=== PATIENT | male | born 1930 | race Caucasian/White ===

== ENCOUNTER 2017-07-21 06:04 | Emergency (ER) | payer MEDICARE ==
[2017-07-21 06:46] LABS: BILIRUBIN,URINE NEGATIVE (NEG); CLARITY,URINE CLEAR; COLOR,URINE YELLOW; GLUCOSE,URINE NEGATIVE (NEG); NITRITE,URINE NEGATIVE (NEG); PH,URINE 5.5; PROTEIN,URINE NEGATIVE (NEG-TRACE); UROBILINOGEN,URINE 0.2 mg/dL (0.2 mg/dL)
[2017-07-21] MEDS: LIDOCAINE 2%/EPI 1:100,000 20 ML VIAL. IJ (07:05)
[2017-07-21 07:19] LABS: RBC,URINE 0 /HPF (0-2)
[2017-07-21 07:20] LABS: BACTERIA,URINE 0 /HPF (0-FEW); SQUAMOUS EPITHELIAL CELL,UR FEW /LPF; WBC,URINE RARE /HPF (0-4)
[2017-07-21 07:43] LABS: ADD MAN DIFF? NO
[2017-07-21 07:47] LABS: BASO % 1 % (0-3); EOS # 0.3 x10^3/uL (0.0-0.7); EOS % 3 % (0-3); HEMATOCRIT 37.9 % (39.0-53.0); HEMOGLOBIN 12.1 g/dL (13.0-17.5); LYMPH # 1.3 x10^3/uL (1.0-4.8); LYMPH % 13 % (24-48); MEAN CORPUSCULAR HEMOGLOBIN 29 pg (25-35); MEAN CORPUSCULAR HGB CONC 32 g/dL (31-37); MEAN CORPUSCULAR VOLUME 92 fL (79-100); MONO # 1.1 x10^3/uL (0.0-1.1); MONO % 12 % (0-9); NEUT % 72 % (31-73); PLATELET COUNT 122 x10^3/uL (140-400); RED BLOOD COUNT 4.14 x10^6/uL (4.30-5.70); RED CELL DISTRIBUTION WIDTH 15.6 % (11.5-14.5); WHITE BLOOD COUNT 9.8 x10^3/uL (4.0-11.0)
[2017-07-21 08:02] LABS: ANION GAP 3 (6-14); BLOOD UREA NITROGEN 24 mg/dL (8-26); BUN/CREATININE RATIO 24 (6-20); CALCIUM 8.6 mg/dL (8.5-10.1); CARBON DIOXIDE 33 mmol/L (21-32); CHLORIDE 95 mmol/L (98-107); GFR 70.8; GLUCOSE 89 mg/dL (70-99); POTASSIUM 4.3 mmol/L (3.5-5.1); SODIUM 131 mmol/L (136-145)
[2017-07-21 08:09] LABS: ALBUMIN 3.4 g/dL (3.4-5.0); ALBUMIN/GLOBULIN RATIO 0.9 (1.0-1.7); ALK PHOS 89 U/L (46-116); ALT (SGPT) 27 U/L (16-63); AST (SGOT) 26 U/L (15-37); INR 1.2 (0.8-1.1); MAGNESIUM 2.2 mg/dL (1.8-2.4); PROTHROMBIN TIME PATIENT 14.1 SEC (11.7-14.0); TOTAL PROTEIN 7.2 g/dL (6.4-8.2)
[2017-07-21 08:09] LABS: TROPONINI < 0.017 ng/mL (0.000-0.055)
[2017-07-21 08:13] LABS: NT-PRO BNP 1519 pg/mL (0-449)
== END 2017-07-21 10:00 | disposition home or self-care (01) ==
LOC: ER 06:04
DX: S01.01XA Laceration without foreign body of scalp, initial encounter (principal); S60.012A Contusion of left thumb without damage to nail, initial encounter; S50.01XA Contusion of right elbow, initial encounter; R29.6 Repeated falls; I48.91 Unspecified atrial fibrillation; I50.9 Heart failure, unspecified; J44.9 Chronic obstructive pulmonary disease, unspecified; E11.9 Type 2 diabetes mellitus without complications; H54.8 Legal blindness, as defined in USA; Z90.49 Acquired absence of other specified parts of digestive tract; Z95.1 Presence of aortocoronary bypass graft; W01.0XXA Fall on same level from slipping, tripping and stumbling without subsequent striking against object, initial encounter; Y93.89 Activity, other specified; Y92.89 Other specified places as the place of occurrence of the external cause; Y99.8 Other external cause status
CPT/HCPCS: 12002; 36415; 70450; 71045; 72125; 73080; 73130; 80053; 81001; 83735; 83880; 84484; 85025; 85610; 99285-25; J3490

== ENCOUNTER 2017-07-23 22:18 | Inpatient (IN) | payer MEDICARE ==
[2017-07-23 22:47] LABS: ADD MAN DIFF? NO
[2017-07-23] MEDS: IPRATROPIUM BROMIDE 0.5 MG/2.5 ML NEBU. NEB (22:47)
[2017-07-23] MEDS: ALBUTEROL SULFATE 2.5 MG/3 ML NEBU. CONT NEB (22:47)
[2017-07-23 22:49] LABS: BASO # 0.1 x10^3/uL (0.0-0.2); BASO % 1 % (0-3); EOS # 0.1 x10^3/uL (0.0-0.7); EOS % 2 % (0-3); HEMATOCRIT 34.5 % (39.0-53.0); HEMOGLOBIN 11.2 g/dL (13.0-17.5); LYMPH # 0.7 x10^3/uL (1.0-4.8); LYMPH % 13 % (24-48); MEAN CORPUSCULAR HEMOGLOBIN 29 pg (25-35); MEAN CORPUSCULAR HGB CONC 33 g/dL (31-37); MEAN CORPUSCULAR VOLUME 90 fL (79-100); MONO # 0.9 x10^3/uL (0.0-1.1); MONO % 16 % (0-9); NEUT # 3.8 x10^3uL (1.8-7.7); NEUT % 68 % (31-73); PLATELET COUNT 120 x10^3/uL (140-400); RED BLOOD COUNT 3.82 x10^6/uL (4.30-5.70); RED CELL DISTRIBUTION WIDTH 15.7 % (11.5-14.5); WHITE BLOOD COUNT 5.6 x10^3/uL (4.0-11.0)
[2017-07-23 22:57] LABS: ANION GAP 6 (6-14); BLOOD UREA NITROGEN 26 mg/dL (8-26); BUN/CREATININE RATIO 22 (6-20); CALCIUM 8.1 mg/dL (8.5-10.1); CARBON DIOXIDE 30 mmol/L (21-32); CHLORIDE 97 mmol/L (98-107); CREATININE 1.2 mg/dL (0.7-1.3); GFR 57.4; GLUCOSE 145 mg/dL (70-99); POTASSIUM 4.4 mmol/L (3.5-5.1); SODIUM 133 mmol/L (136-145)
[2017-07-23 23:03] LABS: ALBUMIN/GLOBULIN RATIO 0.7 (1.0-1.7); ALK PHOS 82 U/L (46-116); ALT (SGPT) 36 U/L (16-63); AST (SGOT) 37 U/L (15-37); TOTAL BILIRUBIN 0.4 mg/dL (0.2-1.0); TOTAL PROTEIN 7.4 g/dL (6.4-8.2)
[2017-07-23 23:05] LABS: TROPONINI 0.018 ng/mL (0.000-0.055)
[2017-07-23 23:09] LABS: NT-PRO BNP 1835 pg/mL (0-449)
[2017-07-23] MEDS: FUROSEMIDE 40 MG/4 ML VIAL. IVP ×2 (23:15→23:45)
[2017-07-23 23:20] LABS: INFLUENZA B PATIENT NEGATIVE (NEGATIVE); OBC FLU VALID
[2017-07-23 23:25] LABS: INFLUENZA A PATIENT POSITIVE (NEGATIVE)
[2017-07-24] MEDS ORDERED: ONDANSETRON PF 4 MG/2 ML VIAL. IV (00:15)
[2017-07-24 07:23] LABS: TROPONINI 0.021 ng/mL (0.000-0.055)
[2017-07-24 09:08] LABS: POC GLUCOSE 106 mg/dL (70-99)
[2017-07-24] MEDS: IPRATRPIUM/ALBUTEROL 0.5/2.5MG 3 ML NEBU. NEB ×4 (09:40→19:43)
[2017-07-24] MEDS: FUROSEMIDE 40 MG/4 ML VIAL. IVP ×2 (10:27→13:43)
[2017-07-24] MEDS: OSELTAMIVIR 75 MG CAPSULE PO ×2 (10:28→20:34)
[2017-07-24] MEDS: ASPIRIN ENTERIC COATED 81 MG TABLET.DR. PO (10:28)
[2017-07-24] MEDS: METOPROLOL TART IMMED RELEASE 50 MG TABLET. PO ×2 (10:28→20:34)
[2017-07-24 11:18] LABS: ANION GAP 6 (6-14); BLOOD UREA NITROGEN 22 mg/dL (8-26); CALCIUM 8.5 mg/dL (8.5-10.1); CARBON DIOXIDE 34 mmol/L (21-32); CHLORIDE 93 mmol/L (98-107); CREATININE 1.1 mg/dL (0.7-1.3); GFR 63.5; GLUCOSE 116 mg/dL (70-99); MAGNESIUM 1.8 mg/dL (1.8-2.4); POTASSIUM 4.4 mmol/L (3.5-5.1); SODIUM 133 mmol/L (136-145)
[2017-07-24 12:23] LABS: POC GLUCOSE 176 mg/dL (70-99)
[2017-07-24] MEDS: ACETAMINOPHEN 325 MG TABLET. PO ×2 (12:42→20:35)
[2017-07-24 13:05] LABS: TROPONINI 0.038 ng/mL (0.000-0.055)
[2017-07-24] MEDS ORDERED: DEXTROSE 50% 25 GM / 50ML DISP.SYRIN. IV (15:15)
[2017-07-24] MEDS: FLUTICASONE 50MCG/NASAL SPRAY 16GM BOTTLE. NS (16:00)
[2017-07-24] MEDS: POTASSIUM CHLORIDE 10 MEQ TABLET.ER. PO (16:44)
[2017-07-24] MEDS: SPIRONOLACTONE 25 MG TABLET PO (16:44)
[2017-07-24] MEDS: SERTRALINE 50 MG TABLET. PO (16:44)
[2017-07-24] MEDS: INSULIN ASPART 300 UNITS/3 ML INSULN.PEN SQ (17:00)
[2017-07-24 17:35] LABS: POC GLUCOSE 81 mg/dL (70-99)
[2017-07-24 20:11] LABS: MRSA BY PCR Negative (Negative)
[2017-07-24] MEDS: traZODone 100 MG TABLET. PO (20:33)
[2017-07-24] MEDS: ATORVASTATIN CALCIUM 20 MG TABLET PO (20:34)
[2017-07-24] MEDS: GABAPENTIN 100 MG CAPSULE. PO (20:34)
[2017-07-24] MEDS: DOCUSATE SODIUM 100 MG CAPSULE. PO (20:35)
[2017-07-24] MEDS: DORZOLAMIDE 2% OPHTH SOLUTION 10ML BOTTLE. OU (20:39)
[2017-07-24] MEDS: INSULIN DETEMIR 300 UNITS/3 ML INSULN.PEN. SQ (21:00)
[2017-07-24] MEDS ORDERED: [UNRECOGNIZED DRUG - OTHER] OP (21:00)
[2017-07-24] MEDS ORDERED: HOMATROPINE HBR OP (21:00)
[2017-07-24 21:03] LABS: POC GLUCOSE 97 mg/dL (70-99)
[2017-07-25] MEDS: ACETAMINOPHEN 325 MG TABLET. PO ×2 (04:07→10:50)
[2017-07-25 05:18] LABS: ADD MAN DIFF? NO
[2017-07-25 05:38] LABS: BASO % 1 % (0-3); EOS % 0 % (0-3); HEMATOCRIT 39.1 % (39.0-53.0); HEMOGLOBIN 12.3 g/dL (13.0-17.5); LYMPH # 1.6 x10^3/uL (1.0-4.8); LYMPH % 27 % (24-48); MEAN CORPUSCULAR HEMOGLOBIN 29 pg (25-35); MEAN CORPUSCULAR HGB CONC 31 g/dL (31-37); MEAN CORPUSCULAR VOLUME 91 fL (79-100); MONO # 1.1 x10^3/uL (0.0-1.1); MONO % 17 % (0-9); NEUT # 3.4 x10^3uL (1.8-7.7); NEUT % 55 % (31-73); PLATELET COUNT 130 x10^3/uL (140-400); RED BLOOD COUNT 4.29 x10^6/uL (4.30-5.70); RED CELL DISTRIBUTION WIDTH 16.1 % (11.5-14.5); WHITE BLOOD COUNT 6.1 x10^3/uL (4.0-11.0)
[2017-07-25 06:14] LABS: ALBUMIN 3.3 g/dL (3.4-5.0); ALBUMIN/GLOBULIN RATIO 0.7 (1.0-1.7); ALK PHOS 87 U/L (46-116); ALT (SGPT) 41 U/L (16-63); ANION GAP 5 (6-14); AST (SGOT) 43 U/L (15-37); BLOOD UREA NITROGEN 31 mg/dL (8-26); BUN/CREATININE RATIO 26 (6-20); CALCIUM 8.4 mg/dL (8.5-10.1); CARBON DIOXIDE 35 mmol/L (21-32); CHLORIDE 95 mmol/L (98-107); CREATININE 1.2 mg/dL (0.7-1.3); GFR 57.4; GLUCOSE 91 mg/dL (70-99); POTASSIUM 4.4 mmol/L (3.5-5.1); SODIUM 135 mmol/L (136-145); TOTAL BILIRUBIN 0.6 mg/dL (0.2-1.0); TOTAL PROTEIN 8.2 g/dL (6.4-8.2)
[2017-07-25 07:42] LABS: POC GLUCOSE 83 mg/dL (70-99)
[2017-07-25] MEDS: IPRATRPIUM/ALBUTEROL 0.5/2.5MG 3 ML NEBU. NEB ×4 (07:57→20:17)
[2017-07-25] MEDS: INSULIN ASPART 300 UNITS/3 ML INSULN.PEN SQ ×3 (08:00→17:00)
[2017-07-25] MEDS: GABAPENTIN 100 MG CAPSULE. PO ×2 (09:00→20:34)
[2017-07-25] MEDS: FLUTICASONE 50MCG/NASAL SPRAY 16GM BOTTLE. NS (09:00)
[2017-07-25] MEDS: DORZOLAMIDE 2% OPHTH SOLUTION 10ML BOTTLE. OU ×2 (09:00→20:35)
[2017-07-25] MEDS: SPIRONOLACTONE 25 MG TABLET PO (09:43)
[2017-07-25] MEDS: OMEGA-3 FATTY ACIDS/FISH OIL 1,000 MG CAPSULE. PO (09:43)
[2017-07-25] MEDS: CHOLECALCIFEROL (VITAMIN D3) 1,000 UNIT TABLET PO (09:43)
[2017-07-25] MEDS: ASCORBIC ACID 500 MG TABLET PO (09:43)
[2017-07-25] MEDS: DOCUSATE SODIUM 100 MG CAPSULE. PO ×2 (09:43→20:33)
[2017-07-25] MEDS: SERTRALINE 50 MG TABLET. PO (09:44)
[2017-07-25] MEDS: POTASSIUM CHLORIDE 10 MEQ TABLET.ER. PO (09:44)
[2017-07-25] MEDS: OSELTAMIVIR 75 MG CAPSULE PO ×2 (09:44→20:35)
[2017-07-25] MEDS: ASPIRIN ENTERIC COATED 81 MG TABLET.DR. PO (09:44)
[2017-07-25] MEDS: DIGOXIN 125 MCG TABLET. PO (09:45)
[2017-07-25] MEDS: FUROSEMIDE 20 MG TABLET PO (09:45)
[2017-07-25] MEDS: METOPROLOL TART IMMED RELEASE 50 MG TABLET. PO ×2 (09:46→20:33)
[2017-07-25] MEDS ORDERED: FUROSEMIDE 20 MG/2 ML VIAL. IVP (10:15)
[2017-07-25] MEDS: FUROSEMIDE 40 MG/4 ML VIAL. IVP (10:51)
[2017-07-25 12:05] LABS: POC GLUCOSE 129 mg/dL (70-99)
[2017-07-25 12:16] LABS: BASE EXCESS ABG 3 mmol/L (-3-3); HCO3 ABG 33 mmol/L (21-28); PH ABG 7.22 (7.35-7.45); PO2 ABG 63 mmHg (65-108); SAT O2 ABG 90 % (92-99)
[2017-07-25 12:31] LABS: PCO2 ABG 83 mmHg (35-46)
[2017-07-25] MEDS: HALOPERIDOL LACTATE 5 MG/ML VIAL. IVP ×5 (12:44→22:45)
[2017-07-25] MEDS: HEPARIN PF for SUB-Q USE 5,000 UNIT/0.5 ML VIAL. SQ ×2 (15:08→20:32)
[2017-07-25 18:10] LABS: BASE EXCESS ABG 6 mmol/L (-3-3); HCO3 ABG 35 mmol/L (21-28); PH ABG 7.28 (7.35-7.45); PO2 ABG 65 mmHg (65-108); SAT O2 ABG 92 % (92-99)
[2017-07-25 18:17] LABS: FIO2 ABG 30; PCO2 ABG 78 mmHg (35-46)
[2017-07-25] MEDS: ATORVASTATIN CALCIUM 20 MG TABLET PO (20:33)
[2017-07-25] MEDS: traZODone 100 MG TABLET. PO (20:33)
[2017-07-25] MEDS: FAMOTIDINE 20 MG/2 ML VIAL IVP (20:33)
[2017-07-25] MEDS: fentaNYL PF VIAL 100 MCG/2 ML VIAL IV ×2 (20:40→23:38)
[2017-07-25] MEDS: INSULIN DETEMIR 300 UNITS/3 ML INSULN.PEN. SQ (21:00)
[2017-07-25 21:06] LABS: POC GLUCOSE 111 mg/dL (70-99)
[2017-07-26] MEDS: fentaNYL PF VIAL 100 MCG/2 ML VIAL IV (03:21)
[2017-07-26] MEDS: IPRATRPIUM/ALBUTEROL 0.5/2.5MG 3 ML NEBU. NEB ×5 (03:29→20:15)
[2017-07-26] MEDS: HEPARIN PF for SUB-Q USE 5,000 UNIT/0.5 ML VIAL. SQ ×3 (06:11→21:23)
[2017-07-26 07:55] LABS: POC GLUCOSE 97 mg/dL (70-99)
[2017-07-26] MEDS: OSELTAMIVIR 75 MG CAPSULE PO ×2 (07:59→21:26)
[2017-07-26] MEDS: CHOLECALCIFEROL (VITAMIN D3) 1,000 UNIT TABLET PO (07:59)
[2017-07-26] MEDS: FUROSEMIDE 20 MG TABLET PO (07:59)
[2017-07-26] MEDS: OMEGA-3 FATTY ACIDS/FISH OIL 1,000 MG CAPSULE. PO (08:00)
[2017-07-26] MEDS: METOPROLOL TART IMMED RELEASE 50 MG TABLET. PO ×2 (08:00→21:16)
[2017-07-26] MEDS: INSULIN ASPART 300 UNITS/3 ML INSULN.PEN SQ ×3 (08:00→17:00)
[2017-07-26] MEDS: POTASSIUM CHLORIDE 10 MEQ TABLET.ER. PO (08:01)
[2017-07-26] MEDS: SPIRONOLACTONE 25 MG TABLET PO (08:01)
[2017-07-26] MEDS: DOCUSATE SODIUM 100 MG CAPSULE. PO ×2 (08:01→21:16)
[2017-07-26] MEDS: DIGOXIN 125 MCG TABLET. PO (08:01)
[2017-07-26] MEDS: ASPIRIN ENTERIC COATED 81 MG TABLET.DR. PO (08:01)
[2017-07-26] MEDS: HALOPERIDOL LACTATE 5 MG/ML VIAL. IVP ×4 (08:02→21:17)
[2017-07-26] MEDS: ASCORBIC ACID 500 MG TABLET PO (08:02)
[2017-07-26] MEDS: SERTRALINE 50 MG TABLET. PO (08:02)
[2017-07-26] MEDS: FLUTICASONE 50MCG/NASAL SPRAY 16GM BOTTLE. NS (08:03)
[2017-07-26 09:00] LABS: BASE EXCESS ABG 5 mmol/L (-3-3); HCO3 ABG 34 mmol/L (21-28); PH ABG 7.31 (7.35-7.45); PO2 ABG 60 mmHg (65-108); SAT O2 ABG 90 % (92-99)
[2017-07-26] MEDS: DORZOLAMIDE 2% OPHTH SOLUTION 10ML BOTTLE. OU ×2 (09:00→22:38)
[2017-07-26] MEDS: GABAPENTIN 100 MG CAPSULE. PO ×2 (09:00→21:15)
[2017-07-26 09:02] LABS: PCO2 ABG 69 mmHg (35-46)
[2017-07-26 11:56] LABS: POC GLUCOSE 117 mg/dL (70-99)
[2017-07-26] MEDS: FUROSEMIDE 20 MG/2 ML VIAL. IVP (12:01)
[2017-07-26] MEDS: methylPREDNISolone SOD SUCC PF 40 MG/ML VIAL. IV ×2 (15:20→21:17)
[2017-07-26 17:37] LABS: POC GLUCOSE 130 mg/dL (70-99)
[2017-07-26] MEDS: traZODone 100 MG TABLET. PO (21:15)
[2017-07-26] MEDS: ATORVASTATIN CALCIUM 20 MG TABLET PO (21:15)
[2017-07-26] MEDS: FAMOTIDINE 20 MG/2 ML VIAL IVP (21:16)
[2017-07-26] MEDS: INSULIN DETEMIR 300 UNITS/3 ML INSULN.PEN. SQ (21:24)
[2017-07-26 21:31] LABS: POC GLUCOSE 178 mg/dL (70-99)
[2017-07-27] MEDS: HALOPERIDOL LACTATE 5 MG/ML VIAL. IVP ×2 (02:34→21:35)
[2017-07-27] MEDS: fentaNYL PF VIAL 100 MCG/2 ML VIAL IV ×2 (02:34→21:35)
[2017-07-27 05:20] LABS: ADD MAN DIFF? NO
[2017-07-27 05:32] LABS: BASO % 0 % (0-3); EOS % 0 % (0-3); HEMATOCRIT 36.4 % (39.0-53.0); HEMOGLOBIN 11.5 g/dL (13.0-17.5); LYMPH # 0.8 x10^3/uL (1.0-4.8); LYMPH % 13 % (24-48); MEAN CORPUSCULAR HEMOGLOBIN 29 pg (25-35); MEAN CORPUSCULAR HGB CONC 32 g/dL (31-37); MEAN CORPUSCULAR VOLUME 91 fL (79-100); MONO # 0.3 x10^3/uL (0.0-1.1); MONO % 6 % (0-9); NEUT % 82 % (31-73); PLATELET COUNT 111 x10^3/uL (140-400); RED BLOOD COUNT 4.02 x10^6/uL (4.30-5.70); RED CELL DISTRIBUTION WIDTH 15.5 % (11.5-14.5); WHITE BLOOD COUNT 6.1 x10^3/uL (4.0-11.0)
[2017-07-27 05:52] LABS: ALBUMIN 2.7 g/dL (3.4-5.0); ALBUMIN/GLOBULIN RATIO 0.6 (1.0-1.7); ALK PHOS 72 U/L (46-116); ALT (SGPT) 40 U/L (16-63); ANION GAP 3 (6-14); AST (SGOT) 47 U/L (15-37); BLOOD UREA NITROGEN 47 mg/dL (8-26); BUN/CREATININE RATIO 43 (6-20); CALCIUM 8.8 mg/dL (8.5-10.1); CARBON DIOXIDE 36 mmol/L (21-32); CHLORIDE 100 mmol/L (98-107); CREATININE 1.1 mg/dL (0.7-1.3); GFR 63.5; GLUCOSE 181 mg/dL (70-99); MAGNESIUM 2.3 mg/dL (1.8-2.4); POTASSIUM 4.2 mmol/L (3.5-5.1); SODIUM 139 mmol/L (136-145); TOTAL BILIRUBIN 0.6 mg/dL (0.2-1.0); TOTAL PROTEIN 7.2 g/dL (6.4-8.2)
[2017-07-27] MEDS: methylPREDNISolone SOD SUCC PF 40 MG/ML VIAL. IV ×3 (06:19→21:36)
[2017-07-27] MEDS: HEPARIN PF for SUB-Q USE 5,000 UNIT/0.5 ML VIAL. SQ ×3 (06:20→21:38)
[2017-07-27] MEDS: IPRATRPIUM/ALBUTEROL 0.5/2.5MG 3 ML NEBU. NEB ×4 (07:35→19:49)
[2017-07-27 08:02] LABS: POC GLUCOSE 170 mg/dL (70-99)
[2017-07-27] MEDS: INSULIN ASPART 300 UNITS/3 ML INSULN.PEN SQ ×3 (09:03→18:26)
[2017-07-27] MEDS: DORZOLAMIDE 2% OPHTH SOLUTION 10ML BOTTLE. OU ×2 (09:08→21:37)
[2017-07-27] MEDS: FLUTICASONE 50MCG/NASAL SPRAY 16GM BOTTLE. NS (09:09)
[2017-07-27] MEDS: FUROSEMIDE 20 MG TABLET PO (09:13)
[2017-07-27] MEDS: ASPIRIN ENTERIC COATED 81 MG TABLET.DR. PO (09:13)
[2017-07-27] MEDS: METOPROLOL TART IMMED RELEASE 50 MG TABLET. PO ×2 (09:13→21:37)
[2017-07-27] MEDS: OSELTAMIVIR 75 MG CAPSULE PO ×2 (09:13→21:36)
[2017-07-27] MEDS: SPIRONOLACTONE 25 MG TABLET PO (09:13)
[2017-07-27 11:01] LABS: DIG 0.8 ng/mL (0.9-2.0)
[2017-07-27 12:00] LABS: POC GLUCOSE 231 mg/dL (70-99)
[2017-07-27] MEDS: SERTRALINE 50 MG TABLET. PO (12:03)
[2017-07-27] MEDS: CHOLECALCIFEROL (VITAMIN D3) 1,000 UNIT TABLET PO (12:03)
[2017-07-27] MEDS: GABAPENTIN 100 MG CAPSULE. PO ×2 (12:03→21:36)
[2017-07-27] MEDS: ACETAMINOPHEN 325 MG TABLET. PO (12:03)
[2017-07-27] MEDS: ASCORBIC ACID 500 MG TABLET PO (12:03)
[2017-07-27] MEDS: OMEGA-3 FATTY ACIDS/FISH OIL 1,000 MG CAPSULE. PO (12:03)
[2017-07-27] MEDS: DOCUSATE SODIUM 100 MG CAPSULE. PO ×2 (12:03→21:36)
[2017-07-27] MEDS: DIGOXIN 125 MCG TABLET. PO (12:04)
[2017-07-27] MEDS: POTASSIUM CHLORIDE 10 MEQ TABLET.ER. PO (12:08)
[2017-07-27] MEDS: FUROSEMIDE 20 MG/2 ML VIAL. IVP (16:23)
[2017-07-27 18:24] LABS: POC GLUCOSE 318 mg/dL (70-99)
[2017-07-27] MEDS: FAMOTIDINE 20 MG/2 ML VIAL IVP (21:36)
[2017-07-27] MEDS: ATORVASTATIN CALCIUM 20 MG TABLET PO (21:36)
[2017-07-27] MEDS: traZODone 100 MG TABLET. PO (21:36)
[2017-07-27] MEDS: INSULIN DETEMIR 300 UNITS/3 ML INSULN.PEN. SQ (21:38)
[2017-07-28 04:13] LABS: BASO % 0 % (0-3); EOS % 0 % (0-3); HEMATOCRIT 36.6 % (39.0-53.0); HEMOGLOBIN 12.1 g/dL (13.0-17.5); LYMPH # 0.6 x10^3/uL (1.0-4.8); LYMPH % 7 % (24-48); MEAN CORPUSCULAR HEMOGLOBIN 30 pg (25-35); MEAN CORPUSCULAR HGB CONC 33 g/dL (31-37); MEAN CORPUSCULAR VOLUME 90 fL (79-100); MONO # 0.6 x10^3/uL (0.0-1.1); MONO % 7 % (0-9); NEUT # 7.5 x10^3uL (1.8-7.7); NEUT % 86 % (31-73); PLATELET COUNT 138 x10^3/uL (140-400); RED BLOOD COUNT 4.08 x10^6/uL (4.30-5.70); RED CELL DISTRIBUTION WIDTH 15.5 % (11.5-14.5); WHITE BLOOD COUNT 8.7 x10^3/uL (4.0-11.0)
[2017-07-28 04:16] LABS: ADD MAN DIFF? YES
[2017-07-28 05:08] LABS: ALBUMIN 2.8 g/dL (3.4-5.0); ALBUMIN/GLOBULIN RATIO 0.6 (1.0-1.7); ALK PHOS 76 U/L (46-116); ALT (SGPT) 53 U/L (16-63); ANION GAP 0 (6-14); AST (SGOT) 43 U/L (15-37); BLOOD UREA NITROGEN 49 mg/dL (8-26); BUN/CREATININE RATIO 45 (6-20); CARBON DIOXIDE 39 mmol/L (21-32); CHLORIDE 100 mmol/L (98-107); CREATININE 1.1 mg/dL (0.7-1.3); GFR 63.5; GLUCOSE 300 mg/dL (70-99); MAGNESIUM 2.4 mg/dL (1.8-2.4); POTASSIUM 4.3 mmol/L (3.5-5.1); SODIUM 139 mmol/L (136-145); TOTAL BILIRUBIN 0.5 mg/dL (0.2-1.0); TOTAL PROTEIN 7.3 g/dL (6.4-8.2)
[2017-07-28 05:22] LABS: % LYMPHS 9 % (24-48); % MONOS 5 % (0-10); % SEGS 86 % (35-66)
[2017-07-28 05:24] LABS: ANISOCYTOSIS SLIGHT; PLT ESTIMATE ADEQUATE (ADEQUATE); POIKILOCYTOSIS SLIGHT
[2017-07-28] MEDS: methylPREDNISolone SOD SUCC PF 40 MG/ML VIAL. IV ×2 (06:10→13:17)
[2017-07-28] MEDS: HEPARIN PF for SUB-Q USE 5,000 UNIT/0.5 ML VIAL. SQ ×3 (06:18→21:57)
[2017-07-28] MEDS: IPRATRPIUM/ALBUTEROL 0.5/2.5MG 3 ML NEBU. NEB ×4 (08:25→20:00)
[2017-07-28 08:37] LABS: POC GLUCOSE 245 mg/dL (70-99)
[2017-07-28] MEDS: FUROSEMIDE 20 MG TABLET PO (08:50)
[2017-07-28] MEDS: OMEGA-3 FATTY ACIDS/FISH OIL 1,000 MG CAPSULE. PO (08:50)
[2017-07-28] MEDS: OSELTAMIVIR 75 MG CAPSULE PO ×2 (08:50→20:14)
[2017-07-28] MEDS: SPIRONOLACTONE 25 MG TABLET PO (08:50)
[2017-07-28] MEDS: CHOLECALCIFEROL (VITAMIN D3) 1,000 UNIT TABLET PO (08:50)
[2017-07-28] MEDS: DOCUSATE SODIUM 100 MG CAPSULE. PO ×2 (08:50→20:13)
[2017-07-28] MEDS: ASCORBIC ACID 500 MG TABLET PO (08:50)
[2017-07-28] MEDS: ASPIRIN ENTERIC COATED 81 MG TABLET.DR. PO (08:50)
[2017-07-28] MEDS: DIGOXIN 125 MCG TABLET. PO (08:51)
[2017-07-28] MEDS: SERTRALINE 50 MG TABLET. PO (08:51)
[2017-07-28] MEDS: POTASSIUM CHLORIDE 10 MEQ TABLET.ER. PO (08:52)
[2017-07-28] MEDS: GABAPENTIN 100 MG CAPSULE. PO ×2 (08:52→20:14)
[2017-07-28] MEDS: METOPROLOL TART IMMED RELEASE 50 MG TABLET. PO ×2 (08:53→20:13)
[2017-07-28] MEDS: DORZOLAMIDE 2% OPHTH SOLUTION 10ML BOTTLE. OU ×2 (08:54→21:48)
[2017-07-28] MEDS: FLUTICASONE 50MCG/NASAL SPRAY 16GM BOTTLE. NS (08:54)
[2017-07-28] MEDS: INSULIN ASPART 300 UNITS/3 ML INSULN.PEN SQ ×3 (09:03→17:32)
[2017-07-28 12:32] LABS: POC GLUCOSE 255 mg/dL (70-99)
[2017-07-28] MEDS: HALOPERIDOL LACTATE 5 MG/ML VIAL. IVP ×3 (13:18→19:23)
[2017-07-28 17:23] LABS: POC GLUCOSE 226 mg/dL (70-99)
[2017-07-28] MEDS: traZODone 100 MG TABLET. PO (20:13)
[2017-07-28] MEDS: ATORVASTATIN CALCIUM 20 MG TABLET PO (20:13)
[2017-07-28] MEDS: FAMOTIDINE 20 MG TABLET. PO (20:14)
[2017-07-28 21:39] LABS: POC GLUCOSE 343 mg/dL (70-99)
[2017-07-28] MEDS: INSULIN DETEMIR 300 UNITS/3 ML INSULN.PEN. SQ (21:55)
[2017-07-29] MEDS: HALOPERIDOL LACTATE 5 MG/ML VIAL. IVP ×2 (00:25→02:28)
[2017-07-29 04:50] LABS: ADD MAN DIFF? NO
[2017-07-29 05:15] LABS: BASO % 0 % (0-3); EOS % 0 % (0-3); HEMATOCRIT 38.1 % (39.0-53.0); HEMOGLOBIN 12.1 g/dL (13.0-17.5); LYMPH % 11 % (24-48); MEAN CORPUSCULAR HEMOGLOBIN 28 pg (25-35); MEAN CORPUSCULAR HGB CONC 32 g/dL (31-37); MEAN CORPUSCULAR VOLUME 89 fL (79-100); MONO % 11 % (0-9); NEUT # 7.1 x10^3uL (1.8-7.7); NEUT % 78 % (31-73); PLATELET COUNT 153 x10^3/uL (140-400); RED BLOOD COUNT 4.26 x10^6/uL (4.30-5.70); RED CELL DISTRIBUTION WIDTH 15.5 % (11.5-14.5); WHITE BLOOD COUNT 9.2 x10^3/uL (4.0-11.0)
[2017-07-29 05:30] LABS: POC GLUCOSE 383 mg/dL (70-99)
[2017-07-29 05:50] LABS: ALBUMIN 2.7 g/dL (3.4-5.0); ALBUMIN/GLOBULIN RATIO 0.6 (1.0-1.7); ALK PHOS 73 U/L (46-116); ALT (SGPT) 59 U/L (16-63); ANION GAP 2 (6-14); AST (SGOT) 36 U/L (15-37); BLOOD UREA NITROGEN 33 mg/dL (8-26); BUN/CREATININE RATIO 33 (6-20); CARBON DIOXIDE 38 mmol/L (21-32); CHLORIDE 102 mmol/L (98-107); GFR 70.8; GLUCOSE 236 mg/dL (70-99); MAGNESIUM 2.4 mg/dL (1.8-2.4); POTASSIUM 3.9 mmol/L (3.5-5.1); SODIUM 142 mmol/L (136-145); TOTAL BILIRUBIN 0.5 mg/dL (0.2-1.0); TOTAL PROTEIN 7.2 g/dL (6.4-8.2)
[2017-07-29] MEDS: HEPARIN PF for SUB-Q USE 5,000 UNIT/0.5 ML VIAL. SQ ×3 (06:20→21:20)
[2017-07-29] MEDS: IPRATRPIUM/ALBUTEROL 0.5/2.5MG 3 ML NEBU. NEB ×4 (08:01→19:08)
[2017-07-29] MEDS: DIGOXIN 125 MCG TABLET. PO (08:18)
[2017-07-29] MEDS: ASCORBIC ACID 500 MG TABLET PO (08:18)
[2017-07-29] MEDS: CHOLECALCIFEROL (VITAMIN D3) 1,000 UNIT TABLET PO (08:18)
[2017-07-29] MEDS: GABAPENTIN 100 MG CAPSULE. PO ×2 (08:18→21:15)
[2017-07-29] MEDS: POTASSIUM CHLORIDE 10 MEQ TABLET.ER. PO (08:19)
[2017-07-29] MEDS: DOCUSATE SODIUM 100 MG CAPSULE. PO ×2 (08:19→21:15)
[2017-07-29] MEDS: ASPIRIN ENTERIC COATED 81 MG TABLET.DR. PO (08:19)
[2017-07-29] MEDS: SPIRONOLACTONE 25 MG TABLET PO (08:19)
[2017-07-29] MEDS: OMEGA-3 FATTY ACIDS/FISH OIL 1,000 MG CAPSULE. PO (08:19)
[2017-07-29] MEDS: FUROSEMIDE 20 MG TABLET PO (08:19)
[2017-07-29] MEDS: OSELTAMIVIR 75 MG CAPSULE PO (08:19)
[2017-07-29] MEDS: SERTRALINE 50 MG TABLET. PO (08:19)
[2017-07-29] MEDS: METOPROLOL TART IMMED RELEASE 50 MG TABLET. PO ×2 (08:19→21:20)
[2017-07-29] MEDS: INSULIN ASPART 300 UNITS/3 ML INSULN.PEN SQ ×3 (08:37→17:38)
[2017-07-29] MEDS: FLUTICASONE 50MCG/NASAL SPRAY 16GM BOTTLE. NS (09:16)
[2017-07-29] MEDS: DORZOLAMIDE 2% OPHTH SOLUTION 10ML BOTTLE. OU ×2 (09:16→21:15)
[2017-07-29 12:28] LABS: POC GLUCOSE 150 mg/dL (70-99)
[2017-07-29 16:52] LABS: POC GLUCOSE 177 mg/dL (70-99)
[2017-07-29 17:26] LABS: POC GLUCOSE 167 mg/dL (70-99)
[2017-07-29] MEDS: traZODone 100 MG TABLET. PO (21:15)
[2017-07-29] MEDS: FAMOTIDINE 20 MG TABLET. PO (21:15)
[2017-07-29] MEDS: ATORVASTATIN CALCIUM 20 MG TABLET PO (21:15)
[2017-07-29] MEDS: INSULIN DETEMIR 300 UNITS/3 ML INSULN.PEN. SQ (21:19)
[2017-07-29 21:43] LABS: POC GLUCOSE 167 mg/dL (70-99)
[2017-07-30 04:29] LABS: ADD MAN DIFF? NO
[2017-07-30 04:40] LABS: BASO % 0 % (0-3); EOS % 0 % (0-3); HEMOGLOBIN 12.8 g/dL (13.0-17.5); LYMPH % 12 % (24-48); MEAN CORPUSCULAR HEMOGLOBIN 29 pg (25-35); MEAN CORPUSCULAR HGB CONC 32 g/dL (31-37); MEAN CORPUSCULAR VOLUME 90 fL (79-100); MONO # 0.9 x10^3/uL (0.0-1.1); MONO % 11 % (0-9); NEUT # 6.4 x10^3uL (1.8-7.7); NEUT % 77 % (31-73); PLATELET COUNT 161 x10^3/uL (140-400); RED BLOOD COUNT 4.46 x10^6/uL (4.30-5.70); RED CELL DISTRIBUTION WIDTH 15.5 % (11.5-14.5); WHITE BLOOD COUNT 8.4 x10^3/uL (4.0-11.0)
[2017-07-30 05:02] LABS: ALBUMIN 2.7 g/dL (3.4-5.0); ALBUMIN/GLOBULIN RATIO 0.6 (1.0-1.7); ALK PHOS 83 U/L (46-116); ALT (SGPT) 64 U/L (16-63); ANION GAP 3 (6-14); AST (SGOT) 36 U/L (15-37); BLOOD UREA NITROGEN 29 mg/dL (8-26); BUN/CREATININE RATIO 32 (6-20); CALCIUM 9.3 mg/dL (8.5-10.1); CARBON DIOXIDE 38 mmol/L (21-32); CHLORIDE 104 mmol/L (98-107); CREATININE 0.9 mg/dL (0.7-1.3); GLUCOSE 146 mg/dL (70-99); MAGNESIUM 2.2 mg/dL (1.8-2.4); POTASSIUM 3.9 mmol/L (3.5-5.1); SODIUM 145 mmol/L (136-145); TOTAL BILIRUBIN 0.7 mg/dL (0.2-1.0); TOTAL PROTEIN 7.4 g/dL (6.4-8.2)
[2017-07-30] MEDS: HEPARIN PF for SUB-Q USE 5,000 UNIT/0.5 ML VIAL. SQ (06:18)
[2017-07-30] MEDS: IPRATRPIUM/ALBUTEROL 0.5/2.5MG 3 ML NEBU. NEB ×2 (07:42→13:00)
[2017-07-30 07:54] LABS: POC GLUCOSE 125 mg/dL (70-99)
[2017-07-30] MEDS: DIGOXIN 125 MCG TABLET. PO (07:56)
[2017-07-30] MEDS: SERTRALINE 50 MG TABLET. PO (07:57)
[2017-07-30] MEDS: ASCORBIC ACID 500 MG TABLET PO (07:57)
[2017-07-30] MEDS: POTASSIUM CHLORIDE 10 MEQ TABLET.ER. PO (07:57)
[2017-07-30] MEDS: ASPIRIN ENTERIC COATED 81 MG TABLET.DR. PO (07:57)
[2017-07-30] MEDS: FUROSEMIDE 20 MG TABLET PO (07:57)
[2017-07-30] MEDS: CHOLECALCIFEROL (VITAMIN D3) 1,000 UNIT TABLET PO (07:57)
[2017-07-30] MEDS: METOPROLOL TART IMMED RELEASE 50 MG TABLET. PO (07:57)
[2017-07-30] MEDS: DORZOLAMIDE 2% OPHTH SOLUTION 10ML BOTTLE. OU (07:58)
[2017-07-30] MEDS: OMEGA-3 FATTY ACIDS/FISH OIL 1,000 MG CAPSULE. PO (07:58)
[2017-07-30] MEDS: SPIRONOLACTONE 25 MG TABLET PO (07:58)
[2017-07-30] MEDS: GABAPENTIN 100 MG CAPSULE. PO (07:58)
[2017-07-30] MEDS: DOCUSATE SODIUM 100 MG CAPSULE. PO (07:58)
[2017-07-30] MEDS: INSULIN ASPART 300 UNITS/3 ML INSULN.PEN SQ ×2 (08:00→12:00)
[2017-07-30 12:04] LABS: POC GLUCOSE 143 mg/dL (70-99)
[2017-07-30] MEDS: FLUTICASONE 50MCG/NASAL SPRAY 16GM BOTTLE. NS (12:43)
== END 2017-07-30 16:47 | DRG 291 ==
LOC: 2 SOUTH 07-24 → ER 22:18
PROC: 5A09357 Assistance with Respiratory Ventilation, Less than 24 Consecutive Hours, Continuous Positive Airway Pressure (ICD-10-PCS; principal; 2017-07-24)
PROC: 5A09357 Assistance with Respiratory Ventilation, Less than 24 Consecutive Hours, Continuous Positive Airway Pressure (ICD-10-PCS; 2017-07-24)
PROC: 5A09357 Assistance with Respiratory Ventilation, Less than 24 Consecutive Hours, Continuous Positive Airway Pressure (ICD-10-PCS; 2017-07-24)
PROC: 5A09357 Assistance with Respiratory Ventilation, Less than 24 Consecutive Hours, Continuous Positive Airway Pressure (ICD-10-PCS; 2017-07-24)
PROC: 5A09357 Assistance with Respiratory Ventilation, Less than 24 Consecutive Hours, Continuous Positive Airway Pressure (ICD-10-PCS; 2017-07-24)
PROC: 5A09357 Assistance with Respiratory Ventilation, Less than 24 Consecutive Hours, Continuous Positive Airway Pressure (ICD-10-PCS; 2017-07-24)
DX: I11.0 Hypertensive heart disease with heart failure (principal); J96.21 Acute and chronic respiratory failure with hypoxia; R65.11 Systemic inflammatory response syndrome (SIRS) of non-infectious origin with acute organ dysfunction; J44.1 Chronic obstructive pulmonary disease with (acute) exacerbation; R13.10 Dysphagia, unspecified; J96.22 Acute and chronic respiratory failure with hypercapnia; I48.2 Chronic atrial fibrillation; J10.1 Influenza due to other identified influenza virus with other respiratory manifestations; I50.33 Acute on chronic diastolic (congestive) heart failure; E11.9 Type 2 diabetes mellitus without complications; E78.00 Pure hypercholesterolemia, unspecified; E78.5 Hyperlipidemia, unspecified; E87.6 Hypokalemia; G89.29 Other chronic pain; H35.30 Unspecified macular degeneration; H40.9 Unspecified glaucoma; H54.8 Legal blindness, as defined in USA; I25.10 Atherosclerotic heart disease of native coronary artery without angina pectoris; R62.7 Adult failure to thrive; T50.1X5A Adverse effect of loop [high-ceiling] diuretics, initial encounter; Z82.49 Family history of ischemic heart disease and other diseases of the circulatory system; Z83.3 Family history of diabetes mellitus; Z85.830 Personal history of malignant neoplasm of bone; Z87.891 Personal history of nicotine dependence; Z90.49 Acquired absence of other specified parts of digestive tract; Z95.1 Presence of aortocoronary bypass graft; F32.9 Major depressive disorder, single episode, unspecified; F41.9 Anxiety disorder, unspecified; G47.00 Insomnia, unspecified; M19.90 Unspecified osteoarthritis, unspecified site
CPT/HCPCS: 36415; 36600; 70450; 71045; 72125; 73080; 73130; 80048; 80053; 80162; 81001; 82805; 82962; 83735; 83880; 84484; 85007; 85025; 85610; 87040; 87641; 87804; 87804-59; 92526-GN; 92610-GN; 93005; 94640; 94644; 94660; 94760; 96374; 97163-GP; 97167-GO; 99285; 99285-25; J1630; J1815; J1940; J2920; J3010; J7613; J7620; J7644; S0028